=== PATIENT | female | born 1960 | race Caucasian/White ===

== ENCOUNTER → 2024-03-23 19:21 | Outpatient (REF) | payer MEDICARE, SELFPAY | LOC: MRI 3T 19:21 | PROVIDERS: ATTENDING PHYSICIAN Specialist; FAMILY PHYSICIAN Internal Medicine | DX: M25.562 Pain in left knee (principal) | CPT/HCPCS: 73721 ==

== ENCOUNTER → 2024-09-21 10:06 | Outpatient (REF) | payer MEDICARE, SELFPAY | LOC: WDC 10:06 | PROVIDERS: ATTENDING PHYSICIAN Internal Medicine | DX: M80.00XS Age-related osteoporosis with current pathological fracture, unspecified site, sequela (principal); M81.0 Age-related osteoporosis without current pathological fracture; Z12.31 Encounter for screening mammogram for malignant neoplasm of breast | CPT/HCPCS: 77063; 77067; 77080; 77081 ==

== ENCOUNTER → 2024-10-24 06:29 | Day surgery (SDC) | payer MEDICARE, SELFPAY | LOC: GI 06:29 | PROVIDERS: ATTENDING PHYSICIAN Internal Medicine | DX: Z12.11 Encounter for screening for malignant neoplasm of colon (principal); Z86.0101 Personal history of adenomatous and serrated colon polyps; D12.5 Benign neoplasm of sigmoid colon | CPT/HCPCS: 45385; 88305 ==

== ENCOUNTER → 2025-07-25 12:30 | Outpatient (REF) | payer MEDICARE, SELFPAY | LOC: RAD 12:30 | PROVIDERS: ATTENDING PHYSICIAN Internal Medicine Rheumatology; FAMILY PHYSICIAN Internal Medicine; OTHER PHYSICIAN Orthopaedic Surgery | DX: M47.812 Spondylosis without myelopathy or radiculopathy, cervical region (principal) | CPT/HCPCS: 72050 ==